=== PATIENT | male | born 1975 | race African-American/Black ===

== ENCOUNTER 2019-09-23 20:27 | Emergency (ER) | payer MEDICAID ==
[~2019-09-23] VITALS: Ht 182.9 cm; Wt 132.5 kg
[2019-09-23 20:28] VITALS: BP 148/90
--- NOTE | 2019-09-23 20:37 | NUR ---
PT HERE FOR STITCHES REMOVAL TO FOREHEAD. PT STATES INITIALLY PLACED 11 DAYS AGO AND HAS [address]
--- NOTE | 2019-09-23 20:54 | NUR ---
4 SUTURES REMOVED BY PA.
[2019-09-23] MEDS ORDERED: NEOSPORIN OINT. PKT 1 PACKET ONE (20:55)
--- NOTE | 2019-09-23 21:02 | NUR ---
Patient/Caregiver given discharge instructions and they have confirmed that they understand the instructions. Patient ambulatory with steady gait.
== END 2019-09-23 21:04 | disposition home or self-care (01) ==
LOC: ED 21:00
DX: S01.91XA Laceration without foreign body of unspecified part of head, initial encounter (principal); F17.210 Nicotine dependence, cigarettes, uncomplicated; Z72.9 Problem related to lifestyle, unspecified; Y35.811A Legal intervention involving manhandling, law enforcement official injured, initial encounter; Y93.89 Activity, other specified; Y92.89 Other specified places as the place of occurrence of the external cause; Y99.8 Other external cause status
CPT/HCPCS: 99282